=== PATIENT | male | born 1995 | race Caucasian/White ===

== ENCOUNTER 2017-11-15 18:51 | Emergency (ER) | payer BC ==
[~2017-11-15] VITALS: Ht 190.5 cm; Wt 97.5 kg
[~2017-11-15 18:51] MED LIST: CLOT1TC TOP
[2017-11-15] MEDS ORDERED: ERYT1OIN LEFTEYE (20:38)
== END 2017-11-15 20:48 | disposition home or self-care (01) ==
LOC: ER 18:51
DX: S05.02XA Injury of conjunctiva and corneal abrasion without foreign body, left eye, initial encounter (principal); W45.8XXA Other foreign body or object entering through skin, initial encounter
CPT/HCPCS: 99283